=== PATIENT | male | born 2000 | race African-American/Black ===

== ENCOUNTER 2018-12-26 18:00 | Emergency (ER) | payer OTHER ==
[2018-12-26 18:03] VITALS: BP 119/77; PULSE 66; RESP 18; TEMP 97.9
[2018-12-26] MEDS ORDERED: IBUPROFEN 600 MG TAB PO STA (18:20)
--- NOTE | 2018-12-26 18:44 | XR ---
EXAMINATION TYPE: XR foot complete LT DATE OF EXAM: 12/26/2018 COMPARISON: NONE HISTORY: Pain TECHNIQUE: 3 views FINDINGS: Metatarsals are intact. I see no fracture nor dislocation. There are no erosions. Joint spa [facility] are normal. IMPRESSION: Negative left foot exam.
--- NOTE | 2018-12-26 19:28 | ED ---
General Adult HPI - General Chief complaint: Extremity Injury, Lower Stated complaint: lt foot injury Time Seen by Provider: 12/26/18 18:05 Source: patient Mode of arrival: ambulatory Limitations: no limitations - History of Present Illness Initial comments: Patient is 18-year-old male presenting to emergency Department with a chief complaint of left foot pain x1 day. Patient reports he was playing Frisbee when he hit leg on the ground harder than usual. Patient reports pain with weightbearing and inversion. Patient has full range of motion in the left foot and toes. Patient denies any lacerations or abrasions. Patient does report mild edema in the midfoot region without any erythema or skin discoloration. Patient denies any numbness or tingling. She reports the pain is a 6 and throbbing. Patient reports rest is the only alleviating factor. - Related Data Allergies Allergy/AdvReac Type Severity Reaction Status Date / Time No Known Allergies Allergy Verified 12/26/18 18:03 Review of Systems ROS Statement: Those systems with pertinent positive or pertinent negative responses have been documented in the HPI. ROS Other: All systems not noted in ROS Statement are negative. Past Medical History Past Medical History: No Reported History History of Any Multi-Drug Resistant Organisms: None Reported Past Surgical History: No Surgical Hx Reported Past Psychological History: No Psychological Hx Reported Smoking Status: Current every day smoker Past Alcohol Use History: None Reported Past Drug Use History: None Reported General Exam - General Exam Comments Initial Comments: General: Well-developed well-nourished distress HEENT: Normocephalic/atraumatic, PERLL, pharynx erythema, swallowing well, EAC no erythema, no exudates, TM clear, no cervical lymph nodes Neck: Supple, nontender, trachea midline Chest/Lungs: Normal respirations, no signs of respiratory distress clear to auscultation bilaterally no wheezes, rales, rhonchi Cardiac: Regular rate and rhythm, normal S1-S2, no murmurs rubs or gallops Abdomen/GI: Soft nontender, bowel sounds equal or quadrant x4, no guarding, no rebound no CVA tenderness Musculoskeletal: Left mid foot tenderness with palpation, mild edema in the left foot, no abrasions or lacerations, no skin discoloration or erythema, +2 dorsalis pedis and posterior tibialis, full range of motion in the left foot and toes Skin: Warmth, no rashes or lesions, no cyanosis or diaphoresis Neurologic: AAO x 3, CN 2-12 intact, Psychiatric: Mood and affect normal, judgment normal Limitations: no limitations Course Vital Signs 12/26/18 18:01 Temperature 97.9 F Pulse Rate 66 Respiratory 18 Rate Blood Pressure 119/77 O2 Sat by Pulse 98 Oximetry Procedures - Orthopedic Splinting/Casting Injury #1 Side: left Lower Extremity Injury Location: foot Lower Extremity Immobilizer: Domenic wrap Medical Decision Making - Medical Decision Making Patient is a 18-year-old male presenting to emergency Department with a chief complaint of left foot pain. X-ray of the left foot is unremarkable. I suspect the patient has suffered contusion to the left foot which is causing the pain that is alleviated with rest and aggravated with weightbearing. Patient is a full range of motion. Patient given ibuprofen for pain. Domenic wrap will be applied. Patient advised to continue applying ice compress multiple times a day for 10-15 minutes each. Patient advised to follow-up with orthopedics if symptoms not improved Within a week. Strict return parameters were thoroughly discussed with patient was understanding and agreeable. Case discussed with physician. Disposition Clinical Impression: Contusion of foot, left Disposition: HOME SELF-CARE Condition: Stable Instructions (If sedation given, give patient instructions): Foot Sprain (ED) Additional Instructions: Please follow with engineering specialist symptoms not improved. Alternate between Tylenol and ibuprofen for pain control. Apply ice compress to minimize symptoms. Please return to emergency department if symptoms worsen. Is patient prescribed a controlled substance at d/c from ED?: No Referrals: Doug Hopkins MD [Primary Care Provider] - 1-2 days Time of Disposition: 19:28
== END 2018-12-26 19:41 | disposition home or self-care (01) ==
LOC: EC 18:00
DX: S90.32XA Contusion of left foot, initial encounter (principal); F17.200 Nicotine dependence, unspecified, uncomplicated; W22.8XXA Striking against or struck by other objects, initial encounter; Y93.74 Activity, frisbee; Y92.89 Other specified places as the place of occurrence of the external cause
CPT/HCPCS: 99283